=== PATIENT | female | born 1985 | race Caucasian/White ===

== ENCOUNTER 2018-01-09 20:22 | Emergency (ER) | payer OTHER ==
[~2018-01-09] VITALS: Ht 162.6 cm; Wt 99.8 kg
[~2018-01-09 20:22] MED LIST: ATOR10TA PO; COZ50 PO; FURO-570 PO; LABE100T20 PO; METO50TE2 PO; PHO667 PO; POTA10TE30 PO; VITA20002 PO
[2018-01-09 20:26] VITALS: BP 141/86
--- NOTE | 2018-01-09 20:31 | NUR ---
PT AMBULATED TO ROOM 12 WITH VSS.
--- NOTE | 2018-01-09 20:35 | NUR ---
PATIENT PRESENTS TO ED S/P FALL YESTERDAY. PATIENT STATES SHE SLIPPED ON A SMALL POOL OF WATER AND LANDED ON HER RIGHT KNEE. PATIENT PRESENTS WITH SUPERFICIAL 1 INCH X 1 INCH ABRASIAN. PATIENT STATES TAKING TYLENOL YESTERDAY FOR PAIN, BUT NO MEDICATION TODAY. APTIENT STATES SHE WAS REFERRED TO THE ER FROM HER DIALYSIS DR. PATIENT DENIES HITTING HER HEAD, LOSS OF CONSCIOUSNESS. PATIENT HAS STEADY GAIT, FULL ROM IN LE, CAP REFILL <3 AT THIS TIME. ER PA MADE AWEARE OF PATIENT STATUS. WILL CONTINUE TO MONITOR.
[2018-01-09 22:13] VITALS: BP 136/89
--- NOTE | 2018-01-09 22:15 | NUR ---
Patient discharged with v/s stable. Written and verbal after care instructions given and explained. Patient verbalized understanding. Ambulatory with steady gait. All questions addressed prior to discharge. Advised to follow up with PMD.
== END 2018-01-09 22:13 | disposition home or self-care (01) ==
LOC: MED 20:22
DX: M79.671 Pain in right foot (principal); M25.561 Pain in right knee; E11.9 Type 2 diabetes mellitus without complications; I10 Essential (primary) hypertension; Z99.2 Dependence on renal dialysis
CPT/HCPCS: 73562; 81002; 81025; 99284; Q0092

== ENCOUNTER 2018-05-19 14:15 | Emergency (ER) | payer OTHER ==
[~2018-05-19] VITALS: Ht 160 cm; Wt 103.0 kg
[2018-05-19 14:25] VITALS: BP 131/79
--- NOTE | 2018-05-19 14:30 | NUR ---
C/O LEFT KNEE INJURY MECHANICAL FALL TODAY, GETTING OFF A TRANSPORTATION VAN FELL ONTO LEFT KNEE, MILD SWELLING WITH SMALL HEMATOMA --AMBULATORY WITH STEADY GAIT HX--ESRD (LEFT ARM A/V SHUNT; GIOVANI, SARAY, SAT), HTN, DM RX--?? . DENIES N/V/D; SKIN IS PINK/WARM/DRY; AAOX4 WITH EVEN AND STEADY GAIT; LUNGS CLEAR BL; HR EVEN AND REGULAR; PT DENIES ANY FEVER, CP, SOB, OR COUGH AT THIS TIME; PATIENT STATES PAIN OF 6/10 AT THIS TIME; VSS; PATIENT POSITIONED FOR COMFORT; HOB ELEVATED; BEDRAILS UP X2; BED DOWN. ER MD MADE AWARE OF PT STATUS.
[2018-05-19] MEDS ORDERED: KETOROLAC 60 MG/2 ML VIAL IM ONE (15:10)
[2018-05-19 16:38] VITALS: BP 128/75
--- NOTE | 2018-05-19 16:38 | NUR ---
Patient discharged with v/s stable. Written and verbal after care instructions given and explained. Patient alert, oriented and verbalized understanding of instructions. Ambulatory with crutches to car. All questions addressed prior to discharge. ID band removed. Patient advised to follow up with PMD. Rx of tramadol given. Patient educated on indication of medication including possible reaction and side effects. Opportunity to ask questions provided and answered.
== END 2018-05-19 16:38 | disposition home or self-care (01) ==
LOC: MED 14:15
DX: S80.212A Abrasion, left knee, initial encounter (principal); K21.9 Gastro-esophageal reflux disease without esophagitis; Z79.899 Other long term (current) drug therapy; V58.4XXA Person boarding or alighting a pick-up truck or van injured in noncollision transport accident, initial encounter; Y93.89 Activity, other specified; Y92.89 Other specified places as the place of occurrence of the external cause; Y99.8 Other external cause status
CPT/HCPCS: 29505; 73562; 96372; 99283; J1885

== ENCOUNTER 2018-05-28 10:03 | Emergency (ER) | payer OTHER ==
[~2018-05-28] VITALS: Ht 162.6 cm; Wt 101.6 kg
--- NOTE | 2018-05-28 10:07 | NUR ---
PT AMBULATES TO BED 8
[2018-05-28 10:08] VITALS: BP 162/80
--- NOTE | 2018-05-28 10:15 | NUR ---
AAO PT C/O COUGH CONGESTION BILATERAL EAR PAIN N/V HEADACHE X 1 WK HX---ESRD( LEFT ARM A/V SHUNT), DM, HTN RX---METROPOLOL, LABETOLOL, LASIX, ATORVASTATIN, INSULIN
--- NOTE | 2018-05-28 10:31 | NUR ---
Patient being evaluated by physician at bedside.
[2018-05-28] MEDS ORDERED: ONDANSETRON 4 MG ODT PO ONE (10:50)
[2018-05-28] MEDS ORDERED: PROMETHAZINE 25 MG/ML VIAL IM ONE (10:50)
--- NOTE | 2018-05-28 12:34 | NUR ---
Patient discharged with v/s stable. Written and verbal after care instructions given and explained. Patient alert, oriented and verbalized understanding of instructions. Ambulatory with steady gait. All questions addressed prior to discharge. ID band removed. Patient advised to follow up with PMD. Rx of Imodium, Promethazine given. Patient educated on indication of medication including possible reaction and side effects. Opportunity to ask questions provided and answered.
[2018-05-28 12:35] VITALS: BP 162/80
== END 2018-05-28 12:34 | disposition home or self-care (01) ==
LOC: MED 10:03
DX: J06.9 Acute upper respiratory infection, unspecified (principal); H66.93 Otitis media, unspecified, bilateral; E11.9 Type 2 diabetes mellitus without complications; K21.9 Gastro-esophageal reflux disease without esophagitis; I10 Essential (primary) hypertension; Z88.0 Allergy status to penicillin; Z79.899 Other long term (current) drug therapy
CPT/HCPCS: 96372; 99283; J2550; Q0162

== ENCOUNTER 2018-08-19 17:17 | Emergency (ER) | payer OTHER ==
[~2018-08-19] VITALS: Ht 162.6 cm; Wt 101.6 kg
[2018-08-19 17:30] VITALS: BP 157/74
--- NOTE | 2018-08-19 17:30 | NUR ---
PT BIB FAMILY C/O L FOOT PAIN X1 DAY. PT REPORTS 9/10 SHARP/THROBING PAIN THROUGH ENTIRE FOOT. PT REPORTS WALKING AND HEARING A CRACK FOLLOWED BY SEVERE PAIN. L FOOT SWOLLEN, NO REDNESS, CAP REFIL <2 SEC, PEDAL PULSE PRESENT, RANGE OF MOTION DECREASED. VSS. ER MD TO SEE PT. MEDHX:DM, HTN, KIDNEY DISEASE, HEMODIALYSIS (TUES, THURS, SAT.) RX:PT UNABLE TO NAME MEDICATIONS
--- NOTE | 2018-08-19 18:20 | NUR ---
PT C/O SEVERE 10/10 NUMBING L FOOT PAIN. VSS. ER NOTIFIED.
[2018-08-19] MEDS ORDERED: KETOROLAC 60 MG/2 ML VIAL IM ONE (18:35)
--- NOTE | 2018-08-19 19:19 | NUR ---
BRADY BANDAGE APPLIED TO LEFT FOOT AND ANKLE; PHALANGES PINK AND WARM; PEDAL AND POPITEAL PULSES EQUAL, AND STRONG BL. PT STATES SHE US UNABLE TO MOVE HER TOES AND THEY "FEEL NUMB".
--- NOTE | 2018-08-19 19:27 | NUR ---
Patient discharged with v/s stable. Patient states she can only use one crutch becuase of fistula to left arm; steady gate with one crutch. Written and verbal after care instructions given and explained. Patient alert, oriented and verbalized understanding of instructions. All questions addressed prior to discharge. ID band removed. Patient advised to follow up with PMD. Rx of Naprosyn given. Patient educated on indication of medication including possible reaction and side effects. Opportunity to ask questions provided and answered.
[2018-08-19 19:30] VITALS: BP 145/63
== END 2018-08-19 19:27 | disposition home or self-care (01) ==
LOC: MED 17:17
DX: S93.402A Sprain of unspecified ligament of left ankle, initial encounter (principal); K21.9 Gastro-esophageal reflux disease without esophagitis; I12.9 Hypertensive chronic kidney disease with stage 1 through stage 4 chronic kidney disease, or unspecified chronic kidney disease; E11.22 Type 2 diabetes mellitus with diabetic chronic kidney disease; N18.6 End stage renal disease; Z79.899 Other long term (current) drug therapy; Z99.2 Dependence on renal dialysis; Z88.0 Allergy status to penicillin; X58.XXXA Exposure to other specified factors, initial encounter; Y93.01 Activity, walking, marching and hiking; Y92.89 Other specified places as the place of occurrence of the external cause; Y99.8 Other external cause status
CPT/HCPCS: 73610; 73630; 81025; 96372; 99283; J1885; Q0092

== ENCOUNTER 2018-11-08 21:54 | Emergency (ER) | payer OTHER ==
[~2018-11-08] VITALS: Ht 162.6 cm; Wt 104.3 kg
[2018-11-08 21:55] VITALS: BP 160/82
--- NOTE | 2018-11-08 21:58 | NUR ---
TO LOBBY A/W BED. VIA WHEELCHAIR
--- NOTE | 2018-11-08 22:34 | NUR ---
PT TO BED 4.
--- NOTE | 2018-11-08 22:41 | NUR ---
33/F PRESENTS WITH SON, C/O ELEVATED BP (HIGHEST 210/106 TODAY IN HD), X4 DAYS. PT REPORTS FRONTAL HEADACHE RADIATING TO POSTERIOR HEAD, SINCE YESTERDAY. REPORTS MILD NAUSEA. PT DENIES CP OR SOB. PT AOX4, SKIN NORMAL WARM AND DRY, RR EVEN AND UNLABORED. LUNG SOUNDS CLEAR BL. BS ACTIVE X4, ABD SOFT ROUND NONTENDER. L UPPER ARM FISTULA NOTED, +BRUIT, +THRILL. NO BLE EDEMA NOTED. PT WITH L BOOT DUE TO L TOE FX X3 MONTHS. HX HTN, DM, ESRD ON HD (TThS) RX COMPLIANT OTC TYLENOL WITH LITTLE RELIEF
[2018-11-08] MEDS ORDERED: MORPHINE SULFATE 4 MG/ML SYR IVP ONE (23:05)
[2018-11-08] MEDS ORDERED: hydrALAZINE 20 MG/ML VIAL IVP ONE (23:05)
[2018-11-09] MEDS ORDERED: PROCHLORPERAZINE 10 MG/2 ML VIAL IVP ONE
[2018-11-09 00:25] LABS: EOSINOPHILS # (AUTO) 0.2 K/uL (0-0.4); EOSINOPHILS % (AUTO) 3.8 % (0.0-4.0); HEMATOCRIT 38.1 % (36-48); HEMOGLOBIN 12.6 g/dL (12.0-16.0); LYMPHOCYTES # (AUTO) 1.1 K/uL (2.5-16.5); LYMPHOCYTES % (AUTO) 24.9 % (20.5-51.1); MEAN CORPUSCULAR HEMOGLOBIN 31 pg (27-31); MEAN CORPUSCULAR HGB CONC 33 g/dL (33-37); MEAN CORPUSCULAR VOLUME 93.8 fL (80-94); MONOCYTES # (AUTO) 0.4 K/uL (0.8-1.0); MONOCYTES % (AUTO) 9.6 % (1.7-9.3); NEUTROPHILS # (AUTO) 2.6 K/uL (1.8-7.7); NEUTROPHILS % (AUTO) 60.7 % (42.2-75.2); PLATELET COUNT (AUTO) 164 K/uL (140-450); RED BLOOD CELL COUNT(AUTO) 4.06 MIL/uL (4.20-5.40); RED CELL DISTRIBUTION WIDTH 16.2 % (11.6-13.7); WHITE BLOOD COUNT (AUTO) 4.2 K/uL (4.8-10.8)
[2018-11-09 00:38] LABS: ALBUMIN 2.9 g/dL (3.4-5.0); ANION GAP 10.4 (8-16); CARBON DIOXIDE 29.9 mmol/L (21-32); POTASSIUM 4.3 mmol/L (3.5-5.1); TOTAL BILIRUBIN 0.6 mg/dL (0.0-1.0)
[2018-11-09 00:41] LABS: CREATININE 5.1 mg/dL (0.6-1.3)
[2018-11-09] MEDS ORDERED: INSULIN REGULAR, HUMAN 100 UNIT/ML VIAL SUBQ ONE ×2 (00:45→01:35)
[2018-11-09] MEDS ORDERED: INSULIN REGULAR, HUMAN 100 UNIT/ML VIAL IV ONE (01:45)
--- NOTE | 2018-11-09 02:05 | NUR ---
PT REPORTS IMPROVEMENT IN HEADACHE, 5/10 AT THIS TIME. BLOOD GLUCOSE 419. VSS. BP 136/70, HR 78. DR BARAJAS MADE AWARE.
--- NOTE | 2018-11-09 02:05 | NUR ---
VERBAL ORDER TO SWITCH HUMULIN R 6 UNITS SUBCUTANEOUS TO IVP FROM DR BARAJAS
[2018-11-09 02:17] VITALS: BP 136/70
== END 2018-11-09 02:17 | disposition home or self-care (01) ==
LOC: MED 21:54
DX: R51 Headache (principal); E11.22 Type 2 diabetes mellitus with diabetic chronic kidney disease; I12.0 Hypertensive chronic kidney disease with stage 5 chronic kidney disease or end stage renal disease; N18.6 End stage renal disease; E11.65 Type 2 diabetes mellitus with hyperglycemia; K21.9 Gastro-esophageal reflux disease without esophagitis; Z99.2 Dependence on renal dialysis; Z79.899 Other long term (current) drug therapy; Z88.0 Allergy status to penicillin
CPT/HCPCS: 36415; 80053; 82948; 85025; 96372; 96374; 96375; 99283; J0360; J0780; J1815; J2270

== ENCOUNTER 2018-11-12 06:20 | Observation (INO) | payer OTHER ==
[~2018-11-12] VITALS: Ht 162.6 cm; Wt 107.0 kg
[2018-11-12 06:27] VITALS: BP 143/68
--- NOTE | 2018-11-12 06:27 | NUR ---
PT TAKEN TO BED 8
--- NOTE | 2018-11-12 06:27 | NUR ---
33 Y/O FEMALE PRESENTS TO ER WITH C/O MOREIRA, COUGH, N/V, AND SOB X3 DAYS. BILAT LOBES DIMINISHED THROUGHT. 77% @RA. NON-PRODUCTIVE COUGH. 10/10 MOREIRA PAIN. N/V X1, ONE HOUR BEFORE ARRIVING TO ER. HX: DIALYSIS AND DM. BLOOD GLUCOSE 346.
--- NOTE | 2018-11-12 06:28 | NUR ---
PLACED ON SUPPLEMENTAL O2 WITH NC @ 2LPM. OXYGEN INCREASED TO 83%.
--- NOTE | 2018-11-12 06:30 | NUR ---
INCREASED OXYGEN TO 4% VIA NC. O2 INCREASED TO 90%. PT STATES RELIEFE. NO RESPIRATORY DISTRESS NOTED. ER MD NOTIFIED. CONTINUE TO MONITOR.
[2018-11-12] MEDS ORDERED: ALBUTEROL SULFATE/IPRATROPIU 3 ML SOL IH ONE (06:50)
--- NOTE | 2018-11-12 06:59 | NUR ---
Respiratory Therapist at bedside for respiratory intervention.
--- NOTE | 2018-11-12 07:05 | NUR ---
ADMITTING DX: COUGH HX: DENIES ASTHMA COPF CHF AWAKE AND ALERT VERBALLY RESPONSIVE HHN THERAPY AND RESPIRATORY DRUG GIVEN NOTED ENCOURAGED PATIENT WITH ACKNOWLEDGEMENT FOR DEEP BREATHING DURING THERAPY
--- NOTE | 2018-11-12 07:13 | NUR ---
Dr. Damon examining patient.
--- NOTE | 2018-11-12 07:15 | NUR ---
POST HHN THERAPY PLACED BACL ON SUPPLEMENTAL OXYGEN AT 4 LPM VIA NC
--- NOTE | 2018-11-12 07:20 | NUR ---
REPORT RECEIVED FROM JUDE NGUYỄN.
[2018-11-12 07:25] LABS: BASOPHILS % (AUTO) 0.3 % (0.0-2.0); EOSINOPHILS # (AUTO) 0.2 K/uL (0-0.4); EOSINOPHILS % (AUTO) 1.5 % (0.0-4.0); HEMATOCRIT 40.3 % (36-48); HEMOGLOBIN 13.6 g/dL (12.0-16.0); LYMPHOCYTES # (AUTO) 0.7 K/uL (2.5-16.5); MEAN CORPUSCULAR HEMOGLOBIN 31 pg (27-31); MEAN CORPUSCULAR HGB CONC 34 g/dL (33-37); MEAN CORPUSCULAR VOLUME 93.1 fL (80-94); MONOCYTES # (AUTO) 0.4 K/uL (0.8-1.0); MONOCYTES % (AUTO) 3.6 % (1.7-9.3); NEUTROPHILS # (AUTO) 9.2 K/uL (1.8-7.7); NEUTROPHILS % (AUTO) 87.6 % (42.2-75.2); PLATELET COUNT (AUTO) 206 K/uL (140-450); RED BLOOD CELL COUNT(AUTO) 4.33 MIL/uL (4.20-5.40); RED CELL DISTRIBUTION WIDTH 15.9 % (11.6-13.7)
[2018-11-12 07:40] LABS: WHITE BLOOD COUNT (AUTO) 10.5 K/uL (4.8-10.8)
[2018-11-12 07:45] LABS: PROTHROMBIN TIME 10.3 secs (10.8-13.4)
[2018-11-12] MEDS ORDERED: LEVOFLOXACIN 500 MG/D5W PREMIX 100 ML IV ONE (07:45)
[2018-11-12 07:46] LABS: ALBUMIN 3.7 g/dL (3.4-5.0); ANION GAP 17.6 (8-16); CARBON DIOXIDE 23.5 mmol/L (21-32); POTASSIUM 4.1 mmol/L (3.5-5.1)
[2018-11-12] MEDS ORDERED: KETOROLAC 15 MG/ML VIAL IVP ONE (07:55)
--- NOTE | 2018-11-12 08:10 | NUR ---
INFLUENZA A & B SAMPLE COLLECTED.
[2018-11-12 08:13] LABS: CREATININE 6.7 mg/dL (0.6-1.3)
[2018-11-12] MEDS ORDERED: INSULIN REGULAR, HUMAN 100 UNIT/ML VIAL SUBQ ONE (08:20)
--- NOTE | 2018-11-12 08:29 | NUR ---
BLOOD GLUCOSE 333 MG/DL. MADE AWARE.
[2018-11-12] MEDS ORDERED: LORazepam 2 MG/ML VIAL IVP PRN (08:30)
[2018-11-12] MEDS ORDERED: ALBUTEROL 0.083% 2.5 MG/3 ML NEBU IH PRN (08:30)
[2018-11-12 09:12] VITALS: BP 162/81
--- NOTE | 2018-11-12 09:12 | NUR ---
Patient will be admitted to care of DR. LARSEN. Admited to TELEMETRY. Will go to room 113. Belongings list completed. Report to JUDE ROBBINS.
--- NOTE | 2018-11-12 09:12 | NUR ---
RECEIVED BEDSIDE REPORT FROM JUDE MORRISON. PATIENT FROM ER, ON TELE MONITOR AND STANDARD PRECAUTIONS IN PLACE. PATIENT ON 6 L O2 NC, NO DISTRESS NOTED. PATIENT AAOX4 AND COMMUNICATES APPROPRIATELY, L SECOND TOE FRACTURE WITH WHEELCHAIR AT BEDSIDE. IV ON L AC 22G SALINE LOCK, IV PATENT AND INTACT. FALL RISK PROTOCOL IN PLACE. L AV SHUNT PRESENT, SIGN POSTED AT [facility] FOR NO BP/VENIPUNCTURE ON L ARM. BED IN LOW POSITION, CALL LIGHT WITHIN REACH, SIDE RAILS X2 UP
[2018-11-12] MEDS: LOSARTAN 50 MG TAB PO SCH (10:06)
--- NOTE | 2018-11-12 10:09 | NUR ---
ADMINISTERED SCHEDULED MEDS. PATIENT TOLERATED WELL
--- NOTE | 2018-11-12 11:59 | NUR ---
SPOKE TO AUGIE, COVERING FOR [facility] DIALYSIS NURSE, REGARDING HEMODIALYSIS SCHEDULED FOR TOMORROW
[2018-11-12 12:00] VITALS: BP 165/80
[2018-11-12] MEDS: MORPHINE SULFATE 4 MG/ML SYR IVP PRN ×2 (12:06→18:32)
[2018-11-12] MEDS: CALCIUM ACETATE 667 MG TAB PO SCH ×2 (12:11→18:00)
[2018-11-12] MEDS: ONDANSETRON 4 MG/2 ML VIAL IVP PRN (12:20)
--- NOTE | 2018-11-12 12:28 | NUR ---
ADMINISTERED SCHEDULED MED AND MORPHINE FOR 8/10 BACK PAIN AND ZOFRAN FOR NAUSEA. PATIENT TOLERATED WELL.
[2018-11-12] MEDS ORDERED: ALBUTEROL 0.083% 2.5 MG/3 ML NEBU IH SCH (13:00)
[2018-11-12] MEDS: ACETAMINOPHEN 325 MG TAB PO PRN ×2 (13:54→18:31)
--- NOTE | 2018-11-12 14:04 | NUR ---
ATTEMPTED TO TAKE PHOTO OF L SECOND TOE FRACTURE, BUT PATIENT STATED HER FOOT DOCTOR DOES NOT WANT IT TO BE REMOVED BY ANYONE ELSE UNTIL FOOT DOCTOR SEES HER AGAIN
[2018-11-12 16:00] VITALS: BP 155/81
--- NOTE | 2018-11-12 18:01 | NUR ---
ADMINISTERED SCHEDULED MED AND ZOFRAN PRN NAUSEA. PATIENT SITTING UP IN BED, TOLERATED WELL
--- NOTE | 2018-11-12 18:02 | NUR ---
FAMILY BROUGHT WHEELCHAIR HOME
[2018-11-12] MEDS ORDERED: SINE10 PO (18:12)
[2018-11-12] MEDS ORDERED: AMLO10TA PO (18:12)
[2018-11-12] MEDS ORDERED: SEVE800T6 PO (18:12)
[2018-11-12] MEDS ORDERED: GABA100C PO (18:12)
--- NOTE | 2018-11-12 18:37 | NUR ---
RETURNED HOME MEDS TO PATIENT. PATIENT STATED [id number] WILL COME VISIT [facility] AND TAKE MEDS HOME
--- NOTE | 2018-11-12 19:10 | NUR ---
GAVE BEDSIDE REPORT TO JUDE FELICIANO. PATIENT ENDORSED IN STABLE CONDITION
--- NOTE | 2018-11-12 19:12 | NUR ---
Received endorsement from AM shift RN; patient A/Ox4, able to make needs known, on bedrest. Patient watching TV; introduced self, updated board. No SOB or distress noted, on O2 6LPM via nasal cannula. IV site on right antecubital, 22 gauge, saline locked. Left upper extremity AVF noted for dialysis access. Skin intact. Boot on left leg noted; boot must remain on per primary healthcare provider order due to second toe fracture that occurred 3 months ago. Bed in the lowest position, call light within reach. Initial assessment done. Will continue to monitor.
--- NOTE | 2018-11-12 19:45 | NUR ---
Frank from Dialysis arrived in patient room to administer dialysis.
[2018-11-12 20:00] VITALS: BP 168/87
--- NOTE | 2018-11-12 20:00 | NUR ---
Dialysis started at this time.
--- NOTE | 2018-11-12 22:05 | NUR ---
Rounds done; Dialysis nurse Frank at bedside. No distress noted.
--- NOTE | 2018-11-12 23:15 | NUR ---
Dialysis Nurse Frank noted dialysis was completed at 2300 and stated 3 liters of fluid removed during dialysis.
[2018-11-13] VITALS: BP 155/81
--- NOTE | 2018-11-13 00:20 | NUR ---
Vitals taken, no distress noted.
--- NOTE | 2018-11-13 02:30 | NUR ---
Checks made, no distress noted.
[2018-11-13 04:00] VITALS: BP 146/70
--- NOTE | 2018-11-13 04:10 | NUR ---
Frequent checks made; patient asleep, visible chest rise and fall noted. Addendum: 11/13/18 at 0610 by Sj Valdes RN Vitals taken at this time, no distress noted.
--- NOTE | 2018-11-13 05:20 | NUR ---
Rounds made; patient asleep, visible chest rise and fall noted.
--- NOTE | 2018-11-13 07:10 | NUR ---
Endorsed patient to AM shift RN for continuity of care; patient in stable condition.
--- NOTE | 2018-11-13 07:11 | NUR ---
RECEIVED BEDSIDE REPORT FROM JUDE FELICIANO. PATIENT ON TELE MONITOR AND STANDARD PRECAUTIONS IN PLACE. PATIENT AAOX4 AND COMMUNICATES APPROPRIATELY, ON 2 L O2 NC, NO DISTRESS NOTED, AND SKIN INTACT EXCEPT FOR L SECOND TOE FRACTURE WITH STITCHES AND BOOT ON L LEG. PATIENT UNABLE TO BEAR WEIGHT AND USES WHEELCHAIR. L AV SHUNT PRESENT, SIGN POSTED AT [facility] FOR NO BP/VENIPUNCTURE ON L ARM. IV ON R AC 22G SALINE LOCK, IV PATENT AND INTACT. FALL RISK PROTOCOL IN PLACE. BED IN LOW POSITION, CALL LIGHT WITHIN REACH, SIDE RAILS X2 UP
[2018-11-13 07:20] LABS: BASOPHILS % (AUTO) 0.2 % (0.0-2.0); EOSINOPHILS # (AUTO) 0.2 K/uL (0-0.4); EOSINOPHILS % (AUTO) 1.6 % (0.0-4.0); HEMATOCRIT 34.6 % (36-48); HEMOGLOBIN 11.6 g/dL (12.0-16.0); LYMPHOCYTES # (AUTO) 0.8 K/uL (2.5-16.5); LYMPHOCYTES % (AUTO) 8.4 % (20.5-51.1); MEAN CORPUSCULAR HEMOGLOBIN 32 pg (27-31); MEAN CORPUSCULAR HGB CONC 34 g/dL (33-37); MEAN CORPUSCULAR VOLUME 94.1 fL (80-94); MONOCYTES # (AUTO) 0.4 K/uL (0.8-1.0); MONOCYTES % (AUTO) 4.3 % (1.7-9.3); NEUTROPHILS # (AUTO) 8.6 K/uL (1.8-7.7); NEUTROPHILS % (AUTO) 85.5 % (42.2-75.2); PLATELET COUNT (AUTO) 166 K/uL (140-450); RED BLOOD CELL COUNT(AUTO) 3.68 MIL/uL (4.20-5.40)
[2018-11-13 07:43] LABS: ALBUMIN 2.5 g/dL (3.4-5.0); ANION GAP 13.3 (8-16); CARBON DIOXIDE 28.2 mmol/L (21-32); MAGNESIUM 1.8 mg/dL (1.8-2.4); PHOSPHORUS 4.1 mg/dL (2.5-4.9); POTASSIUM 4.5 mmol/L (3.5-5.1); TOTAL BILIRUBIN 1.1 mg/dL (0.0-1.0)
[2018-11-13 07:45] LABS: CREATININE 5.1 mg/dL (0.6-1.3)
[2018-11-13] MEDS: ACETAMINOPHEN 325 MG TAB PO PRN ×2 (07:58→14:36)
[2018-11-13] MEDS: CALCIUM ACETATE 667 MG TAB PO SCH ×2 (08:00→12:02)
[2018-11-13] MEDS: LOSARTAN 50 MG TAB PO SCH (08:01)
--- NOTE | 2018-11-13 08:01 | NUR ---
ADMINISTERED TYLENOL PRN FOR HEADACHE, HELD PHOSLO SINCE PATIENT HAS TO TAKE IT WITH FOOD AND SHE STATED SHE DOES NOT WANT TO EAT DURING DIALYSIS AND HELD LOSARTAN SINCE SHE IS CURRENTLY HAVING DIALYSIS AT THIS TIME
--- NOTE | 2018-11-13 08:17 | NUR ---
PATIENT HAS BEEN SCREENED AND CATEGORIZED HIGH NUTRITION RISK. PATIENT WILL BE SEEN WITHIN 1-2 DAYS OF ADMISSION. 11/13/[address]
[2018-11-13 08:53] VITALS: BP 164/83
--- NOTE | 2018-11-13 10:15 | NUR ---
PATIENT HAVING DIALYSIS AT THIS TIME, ON 2L O2 NC, NO DISTRESS NOTED
--- NOTE | 2018-11-13 11:18 | NUR ---
HEMODIALYSIS COMPLETE, 3L OUTPUT. PATIENT NOW EATING
[2018-11-13 12:00] VITALS: BP 152/72
--- NOTE | 2018-11-13 12:02 | NUR ---
FAMILY AT BEDSIDE, PATIENT LYING IN BED COMFORTABLY SPEAKING TO FAMILY, ON ROOM AIR, NO DISTRESS NOTED
--- NOTE | 2018-11-13 12:10 | NUR ---
DR. LARSEN AT BEDSIDE, STATED PATIENT CAN BE DISCHARGED TODAY
[2018-11-13] MEDS: ONDANSETRON 4 MG/2 ML VIAL IVP PRN (14:36)
--- NOTE | 2018-11-13 14:45 | NUR ---
DISCHARGE INSTRUCTIONS PROVIDED TO PATIENT. PNA VACCINE 2017 AND FLU VACCINE 04/2018. PATIENT INSTRUCTED TO RESUME HEMODIALYSIS ON MONDAY AND TO RETURN TO NEAREST ER OR CALL 911 IF SHE EXPERIENCES SOB, FEVER, PAIN, OR WORSENING OF SYMPTOMS. L SECOND TOE FRACTURE STITCHES IN PLACE PER PATIENT WITH BOOT ON L LEG, UNABLE TO TAKE PICTURES SINCE PATIENT STATED HER FOOT DOCTOR ORDERED FOR HER NOT TO REMOVE IT UNTIL SHE SEES FOOT DOCTOR AGAIN. DR. LARSEN ORDERED FOR HER TO RESUME ALL HER HOME MEDS AND TO STOP ANTIBIOTICS. PATIENT VERBALIZED UNDERSTANDING. REMOVED ARM BANDS AND IV, IV TIP INTACT. ALL BELONGINGS SENT HOME WITH PATIENT. ANSWERED ALL QUESTIONS AND CONCERNS.
[2018-11-14] MEDS ORDERED: LEVOFLOXACIN 250 MG/D5 PREMIX 50 ML IV SCH (09:00)
== END 2018-11-13 14:55 | disposition home or self-care (01) ==
LOC: MED 06:20 → MTU 08:50
PROVIDERS: ADMIT Internal Medicine Pulmonary Disease; ATTEND Internal Medicine Pulmonary Disease
DX: R65.20 Severe sepsis without septic shock (principal); I12.0 Hypertensive chronic kidney disease with stage 5 chronic kidney disease or end stage renal disease; E11.22 Type 2 diabetes mellitus with diabetic chronic kidney disease; N18.6 End stage renal disease; J18.9 Pneumonia, unspecified organism; E87.79 Other fluid overload; E66.01 Morbid (severe) obesity due to excess calories; J81.1 Chronic pulmonary edema; Z88.0 Allergy status to penicillin; Z99.2 Dependence on renal dialysis
CPT/HCPCS: 36415; 71045; 80053; 82948; 83605; 83735; 83880; 84100; 84484; 85025; 85610; 85730; 87040; 87081; 87804; 93307; 94640; 94760; 96365; 96372; 96375; 96376; 99291; G0378; J1815; J1885; J1956; J2270; J2405; J7030; J7613; J7620; Q0092; 90935

== ENCOUNTER 2019-01-17 14:42 | Emergency (ER) | payer OTHER ==
[~2019-01-17] VITALS: Ht 162.6 cm; Wt 101.8 kg
[~2019-01-17 14:42] MED LIST changes: +AMLO10TA PO; +GABA100C PO; +SEVE800T6 PO; +SINE10 PO
[2019-01-17 14:50] VITALS: BP 160/81
--- NOTE | 2019-01-17 15:03 | NUR ---
PT AMBULATED TO [facility] WITH STEADY GAIT
--- NOTE | 2019-01-17 16:40 | NUR ---
PT AMBULATED TO BED 12 WITH STEADY GAIT. HANDED URINE CUP.
--- NOTE | 2019-01-17 16:40 | NUR ---
PT AMBULATED TO THE BATHROOM WITH STEADY GAIT.
--- NOTE | 2019-01-17 16:48 | NUR ---
BIB SELF. AAO X4 C/O HEADACHE R/T HIGH BLOOD PRESSURE. PT STATES SHE TOOK HER BP MEDS AFTER HER DIALYSIS TODAY AT 0930, LOSARTAN & LABETALOL. PT DENIES DIZZINESS, N/V. WILFREDO FISTULA. PATIENT STATES PAIN OF 10/10 AT THIS TIME; VSS; PATIENT POSITIONED FOR COMFORT; HOB ELEVATED; BEDRAILS UP X1; BED DOWN. ER MD MADE AWARE OF PT STATUS.
--- NOTE | 2019-01-17 17:00 | NUR ---
DR. SANCHES BEDSIDE EVALUATING PT
[2019-01-17] MEDS ORDERED: diphenhydrAMINE 50 MG/ML VIAL IVP ONE (17:15)
[2019-01-17] MEDS ORDERED: METOCLOPRAMIDE 10 MG/2 ML INJ VIAL IVP ONE (17:15)
--- NOTE | 2019-01-17 17:28 | NUR ---
PT TAKEN TO CT VIA W/C
--- NOTE | 2019-01-17 17:37 | NUR ---
PT IS BACK FROM CT SCAN ASSISTED BY DIRECTOR OF PAYROLL VIA WHEELCHAIR.
[2019-01-17 17:57] LABS: BASOPHILS % (AUTO) 0.3 % (0.0-2.0); EOSINOPHILS # (AUTO) 0.1 K/uL (0-0.4); EOSINOPHILS % (AUTO) 1.3 % (0.0-4.0); HEMATOCRIT 39.6 % (36-48); HEMOGLOBIN 13.2 g/dL (12.0-16.0); LYMPHOCYTES # (AUTO) 0.4 K/uL (2.5-16.5); LYMPHOCYTES % (AUTO) 8.8 % (20.5-51.1); MEAN CORPUSCULAR HEMOGLOBIN 31 pg (27-31); MEAN CORPUSCULAR HGB CONC 33 g/dL (33-37); MEAN CORPUSCULAR VOLUME 92.2 fL (80-94); MONOCYTES # (AUTO) 0.5 K/uL (0.8-1.0); MONOCYTES % (AUTO) 11.2 % (1.7-9.3); NEUTROPHILS # (AUTO) 3.1 K/uL (1.8-7.7); NEUTROPHILS % (AUTO) 78.4 % (42.2-75.2); PLATELET COUNT (AUTO) 157 K/uL (140-450); RED BLOOD CELL COUNT(AUTO) 4.29 MIL/uL (4.20-5.40); RED CELL DISTRIBUTION WIDTH 15.2 % (11.6-13.7)
[2019-01-17 18:13] LABS: ANION GAP 13.2 (8-16); CARBON DIOXIDE 27.9 mmol/L (21-32); POTASSIUM 4.1 mmol/L (3.5-5.1)
--- NOTE | 2019-01-17 18:17 | NUR ---
CRITICAL LAB REPORT RECEIVED FROM MERCED FROM LAB. CREATININE: 5.4 DR SANCHES AWARE.
[2019-01-17 18:18] LABS: CREATININE 5.4 mg/dL (0.6-1.3)
[2019-01-17 18:19] LABS: ALBUMIN 3.1 g/dL (3.4-5.0); TOTAL BILIRUBIN 0.7 mg/dL (0.0-1.0)
--- NOTE | 2019-01-17 18:50 | NUR ---
Dr. Brown is evaluating pt at bedside.
[2019-01-17] MEDS ORDERED: HYDROcodone/APAP 5/325 MG 1 TAB TAB PO ONE (18:55)
[2019-01-17 19:10] VITALS: BP 140/67
--- NOTE | 2019-01-17 19:10 | NUR ---
Patient discharged with v/s stable. Written and verbal after care instructions given and explained. Patient alert, oriented and verbalized understanding of instructions. Ambulatory with steady gait. All questions addressed prior to discharge. ID band removed. Patient advised to follow up with PMD. Rx of ZOFRAN ODT AND NORCO 5-325 MG TAB given. Patient educated on indication of medication including possible reaction and side effects. Opportunity to ask questions provided and answered.
== END 2019-01-17 19:10 | disposition home or self-care (01) ==
LOC: MED 14:42
DX: R51 Headache (principal); R03.0 Elevated blood-pressure reading, without diagnosis of hypertension; R11.0 Nausea; E11.9 Type 2 diabetes mellitus without complications; K21.9 Gastro-esophageal reflux disease without esophagitis; I10 Essential (primary) hypertension; E78.5 Hyperlipidemia, unspecified; Z98.890 Other specified postprocedural states; Z79.899 Other long term (current) drug therapy; Z88.0 Allergy status to penicillin
CPT/HCPCS: 36415; 70450; 80053; 82948; 85025; 96374; 96375; 99284; J1200; J2765

== ENCOUNTER 2019-03-27 15:45 | Emergency (ER) | payer OTHER ==
[~2019-03-27] VITALS: Ht 160 cm; Wt 99.8 kg
[~2019-03-27 15:45] MED LIST changes: -COZ50 PO; +LOSA50TA57 PO
[2019-03-27 16:00] VITALS: BP 147/89
--- NOTE | 2019-03-27 16:01 | NUR ---
PT ARRVIED TO ED C/O RIGHT ABD PAIN AND RIGHT FLANK PAIN X YESTERDAY. DENIES ANY DYSURIA AND BLOOD IN URINE. ABD IS ROUND AND SOFT AND TENDER ON RIGHT LOWER QUAD. RATES PAIN 9/10 AND DESCRIBES IT SHARP. STATES HE HAD TO EPISODES OF VOMITTING TODAY. ALLERGIES: PENICILLIN
--- NOTE | 2019-03-27 16:05 | NUR ---
PT TO ER LESVIABY. PT ALERT AND AWAKE. AMB WITH STEADY GAIT
--- NOTE | 2019-03-27 16:17 | NUR ---
PT AMBULATED TO BED 04.
[2019-03-27] MEDS ORDERED: NACL 0.9% 1,000 ML IV ONE (16:55)
[2019-03-27] MEDS ORDERED: ONDANSETRON 4 MG/2 ML VIAL IVP ONE (16:55)
--- NOTE | 2019-03-27 17:20 | NUR ---
PT HAS RIGHT SHUNT FOR DIALYSIS ACCESS ON RIGHT ARM.
[2019-03-27] MEDS ORDERED: KETOROLAC 30 MG/ML VIAL IVP ONE (17:25)
[2019-03-27 17:43] LABS: APPEARANCE,URINE CLEAR (CLEAR); BILIRUBIN,URINE NEGATIVE (NEGATIVE); BLOOD, URINE TRACE-I (NEGATIVE); COLOR,URINE YELLOW (YELLOW); LEUKOCYTE ESTERASE ,URINE NEGATIVE (NEGATIVE); NITRITE, URINE NEGATIVE (NEGATIVE); PH,URINE 8.5 (5.0-9.0); UGLUCOSE 1+ (NEGATIVE)
[2019-03-27 17:47] LABS: BASOPHILS # (AUTO) 0.1 K/uL (0.00-0.22); BASOPHILS % (AUTO) 1.2 % (0.0-2.0); EOSINOPHILS # (AUTO) 0.1 K/uL (0-0.4); EOSINOPHILS % (AUTO) 2.6 % (0.0-4.0); HEMATOCRIT 35.2 % (36-48); HEMOGLOBIN 11.4 g/dL (12.0-16.0); LYMPHOCYTES % (AUTO) 22.4 % (20.5-51.1); MEAN CORPUSCULAR HEMOGLOBIN 31 pg (27-31); MEAN CORPUSCULAR HGB CONC 33 g/dL (33-37); MEAN CORPUSCULAR VOLUME 94.8 fL (80-94); MONOCYTES # (AUTO) 0.5 K/uL (0.8-1.0); MONOCYTES % (AUTO) 10.7 % (1.7-9.3); NEUTROPHILS # (AUTO) 2.9 K/uL (1.8-7.7); NEUTROPHILS % (AUTO) 63.1 % (42.2-75.2); PLATELET COUNT (AUTO) 164 K/uL (140-450); RED BLOOD CELL COUNT(AUTO) 3.71 MIL/uL (4.20-5.40); RED CELL DISTRIBUTION WIDTH 14.8 % (11.6-13.7); WHITE BLOOD COUNT (AUTO) 4.7 K/uL (4.8-10.8)
--- NOTE | 2019-03-27 17:47 | NUR ---
BS 61, NOTIFIED ABOUT IT.
[2019-03-27 18:07] LABS: ANION GAP 14.7 (8-16); CARBON DIOXIDE 29.1 mmol/L (21-32); POTASSIUM 4.8 mmol/L (3.5-5.1)
[2019-03-27 18:09] LABS: ALBUMIN 3.6 g/dL (3.4-5.0); CREATININE 6.3 mg/dL (0.6-1.3); TOTAL BILIRUBIN 0.7 mg/dL (0.0-1.0)
[2019-03-27 18:46] VITALS: BP 147/89
== END 2019-03-27 18:47 | disposition home or self-care (01) ==
LOC: MED 15:45
DX: R10.9 Unspecified abdominal pain (principal); R11.2 Nausea with vomiting, unspecified; E11.9 Type 2 diabetes mellitus without complications; K21.9 Gastro-esophageal reflux disease without esophagitis; I10 Essential (primary) hypertension; F03.90 Unspecified dementia, unspecified severity, without behavioral disturbance, psychotic disturbance, mood disturbance, and anxiety; Z87.448 Personal history of other diseases of urinary system; Z98.890 Other specified postprocedural states; Z79.899 Other long term (current) drug therapy; Z88.0 Allergy status to penicillin
CPT/HCPCS: 36415; 80053; 81003; 81025; 82150; 82948; 83690; 85025; 96361; 96374; 96375; 99283; J1885; J2405; J7030

== ENCOUNTER 2019-03-29 17:59 | Emergency (ER) | payer OTHER ==
[~2019-03-29] VITALS: Ht 160 cm; Wt 100.2 kg
[2019-03-29 18:22] VITALS: BP 174/85
--- NOTE | 2019-03-29 18:28 | NUR ---
ACCU CHECK 204
--- NOTE | 2019-03-29 18:28 | NUR ---
PT TO ER LOBBY. PT ALERT AND AWAKE
--- NOTE | 2019-03-29 20:38 | NUR ---
PT AMBULATED TO ER BED 11
--- NOTE | 2019-03-29 21:00 | NUR ---
34 Y/O FEMALE ABD BACK PAIN WITH VOMITING X MONDAY. SAW PCP TODAY AND WAS SENT TO ER FOR ABDOMINAL AND RENAL US. A/OX4 AND FOLLOWS COMMANDS. PAIN IS A 10/10 PAIN STARTING FROM LOWER ABDOMEN AND RADIATING TO THE BACK. ERMD MADE AWARE. SIDE RAILSX1. WILL CONTINUE TO MONITOR. PMH- L ARM FISTULA, DM, KIDNEY DISEASE, HTN ALLERGIES:PCN RX: SEE MED REC.
[2019-03-29] MEDS ORDERED: MORPHINE SULFATE 2 MG/ML SYR IVP ONE (21:15)
[2019-03-29] MEDS ORDERED: ONDANSETRON 4 MG/2 ML VIAL IVP ONE (21:15)
--- NOTE | 2019-03-29 21:33 | NUR ---
PATIENT TAKEN TO CT.
[2019-03-29 21:43] LABS: BASOPHILS % (AUTO) 0.9 % (0.0-2.0); EOSINOPHILS # (AUTO) 0.1 K/uL (0-0.4); EOSINOPHILS % (AUTO) 2.3 % (0.0-4.0); HEMATOCRIT 34.5 % (36-48); HEMOGLOBIN 11.4 g/dL (12.0-16.0); LYMPHOCYTES # (AUTO) 1.3 K/uL (2.5-16.5); LYMPHOCYTES % (AUTO) 27.1 % (20.5-51.1); MEAN CORPUSCULAR HEMOGLOBIN 31 pg (27-31); MEAN CORPUSCULAR HGB CONC 33 g/dL (33-37); MEAN CORPUSCULAR VOLUME 94.6 fL (80-94); MONOCYTES # (AUTO) 0.5 K/uL (0.8-1.0); MONOCYTES % (AUTO) 11.2 % (1.7-9.3); NEUTROPHILS # (AUTO) 2.8 K/uL (1.8-7.7); NEUTROPHILS % (AUTO) 58.5 % (42.2-75.2); PLATELET COUNT (AUTO) 183 K/uL (140-450); RED BLOOD CELL COUNT(AUTO) 3.64 MIL/uL (4.20-5.40); WHITE BLOOD COUNT (AUTO) 4.8 K/uL (4.8-10.8)
[2019-03-29 22:31] LABS: ANION GAP 13.7 (8-16); CARBON DIOXIDE 29.4 mmol/L (21-32); POTASSIUM 5.1 mmol/L (3.5-5.1)
[2019-03-29 22:32] LABS: ALBUMIN 3.5 g/dL (3.4-5.0); TOTAL BILIRUBIN 0.8 mg/dL (0.0-1.0)
[2019-03-29 22:41] LABS: CREATININE 6.8 mg/dL (0.6-1.3)
[2019-03-29] MEDS ORDERED: MORPHINE SULFATE 4 MG/ML SYR IVP ONE (23:00)
--- NOTE | 2019-03-29 23:15 | NUR ---
PATIENT IS IN NO DISTRESS AT THIS TIME. PLACED ON MONITOR. WILL CONTINUE TO MONITOR.
--- NOTE | 2019-03-30 00:13 | NUR ---
PATIENT IS QUIETLY EATING. WILL CONTINUE TO MONITOR.
[2019-03-30 01:58] VITALS: BP 137/80
--- NOTE | 2019-03-30 01:58 | NUR ---
Patient discharged with v/s stable. Written and verbal after care instructions given and explained. Patient alert, oriented and verbalized understanding of instructions. Ambulatory with steady gait. All questions addressed prior to discharge. ID band removed. Patient advised to follow up with PMD. Opportunity to ask questions provided and answered.
== END 2019-03-30 01:58 | disposition home or self-care (01) ==
LOC: MED 17:59
DX: R10.9 Unspecified abdominal pain (principal)
CPT/HCPCS: 36415; 74176; 80053; 81002; 81025; 82150; 82948; 83690; 85025; 96374; 96375; 96376; 99284; J2270; J2405

== ENCOUNTER 2019-04-01 16:01 | Emergency (ER) | payer OTHER ==
[~2019-04-01] VITALS: Ht 162.6 cm; Wt 98.9 kg
[2019-04-01 16:16] VITALS: BP 159/84
--- NOTE | 2019-04-01 16:45 | NUR ---
34/F BIB MOTHER, COMPLAINING OF ABDOMINAL AND RIGHT FLANK PAIN. pt states she has not had a bm since 03/26/19, NOT PASSING GAS, QSX4 HYPERACTIVE, ABDOMEN IS TENDER TO TOUCH ON RLQ, +VOMITING, +NAUSEA [id number]. PAIN /, ALLEVIATES BY LAYING ON LEFT SIDE. PATIENT HAS DIALTYSIS ON MONDAY, MONDAY AND . SHUNT IS INTACT, BRUIT AND THRILL PRESENT. PMHX: DIABETES, KIDNEY FAILURE, HTN RX: AMLODIPINE, CHOLECALCIFEROL, ETHINYL ESTRADIOL-NORETHINDRONE, FUROSEMIDE, GABAPENTIN, GLYBURIDE, HYDROXYNE, INSULIN ASPART, INSULIN DEGLUDEC, LABETADOL, LOSARTAN, METOCLOPRAMIDE, METOPROLOL, POTASSIUM CHLORIDE, SEVELAMER
[2019-04-01] MEDS ORDERED: ONDANSETRON 4 MG ODT PO ONE (17:10)
[2019-04-01] MEDS ORDERED: MORPHINE SULFATE 4 MG/ML SYR IM ONE (17:10)
[2019-04-01 17:30] LABS: BASOPHILS # (AUTO) 0.1 K/uL (0.00-0.22); EOSINOPHILS # (AUTO) 0.1 K/uL (0-0.4); EOSINOPHILS % (AUTO) 2.5 % (0.0-4.0); HEMATOCRIT 36.1 % (36-48); HEMOGLOBIN 11.9 g/dL (12.0-16.0); LYMPHOCYTES # (AUTO) 1.1 K/uL (2.5-16.5); MEAN CORPUSCULAR HEMOGLOBIN 31 pg (27-31); MEAN CORPUSCULAR HGB CONC 33 g/dL (33-37); MEAN CORPUSCULAR VOLUME 94.7 fL (80-94); MONOCYTES # (AUTO) 0.4 K/uL (0.8-1.0); MONOCYTES % (AUTO) 6.5 % (1.7-9.3); PLATELET COUNT (AUTO) 181 K/uL (140-450); RED BLOOD CELL COUNT(AUTO) 3.81 MIL/uL (4.20-5.40); RED CELL DISTRIBUTION WIDTH 14.8 % (11.6-13.7); WHITE BLOOD COUNT (AUTO) 5.7 K/uL (4.8-10.8)
--- NOTE | 2019-04-01 17:38 | NUR ---
HEADING TO IMAGING AT THIS TIME.
[2019-04-01 17:40] LABS: APPEARANCE,URINE CLOUDY (CLEAR); BILIRUBIN,URINE NEGATIVE (NEGATIVE); BLOOD, URINE TRACE-I (NEGATIVE); COLOR,URINE YELLOW (YELLOW); LEUKOCYTE ESTERASE ,URINE TRACE (NEGATIVE); NITRITE, URINE NEGATIVE (NEGATIVE); PH,URINE 7.5 (5.0-9.0); UGLUCOSE 2+ (NEGATIVE)
[2019-04-01 17:41] LABS: ANION GAP 18.6 (8-16); POTASSIUM 5.6 mmol/L (3.5-5.1)
[2019-04-01 17:45] LABS: CREATININE 8.2 mg/dL (0.6-1.3)
[2019-04-01 17:48] LABS: ALBUMIN 3.6 g/dL (3.4-5.0); TOTAL BILIRUBIN 0.7 mg/dL (0.0-1.0)
[2019-04-01 17:58] LABS: RBC,URINE 0-5 /HPF (0-5); WBC,URINE 0-5 /HPF (0-5)
[2019-04-01] MEDS ORDERED: SODIUM ZIRCONIUM CYCLOSILICATE 10 GM POWD.PACK PO ONE (18:15)
[2019-04-01 18:43] VITALS: BP 160/80
--- NOTE | 2019-04-01 18:43 | NUR ---
Patient discharged with v/s stable. Written and verbal after care instructions given and explained. Patient alert, oriented and verbalized understanding of instructions. Ambulatory with steady gait. All questions addressed prior to discharge. ID band removed. Patient advised to follow up with PMD. Rx of MIRALAX, LACTULOSE, AND GLYCERIN given. Patient educated on indication of medication including possible reaction and side effects. Opportunity to ask questions provided and answered.
== END 2019-04-01 18:43 | disposition home or self-care (01) ==
LOC: MED 16:01
DX: K59.00 Constipation, unspecified (principal); E87.5 Hyperkalemia; I12.0 Hypertensive chronic kidney disease with stage 5 chronic kidney disease or end stage renal disease; E11.22 Type 2 diabetes mellitus with diabetic chronic kidney disease; N18.6 End stage renal disease; R10.31 Right lower quadrant pain; R10.13 Epigastric pain; K21.9 Gastro-esophageal reflux disease without esophagitis; F03.90 Unspecified dementia, unspecified severity, without behavioral disturbance, psychotic disturbance, mood disturbance, and anxiety; Z98.890 Other specified postprocedural states; Z79.899 Other long term (current) drug therapy; Z88.0 Allergy status to penicillin
CPT/HCPCS: 36415; 74021; 80053; 81001; 81025; 82948; 83690; 85025; 87086; 96372; 99284; J2270; Q0162

== ENCOUNTER 2019-09-13 12:38 | Emergency (ER) | payer OTHER ==
[~2019-09-13] VITALS: Ht 167.6 cm; Wt 99.8 kg
[2019-09-13 12:52] VITALS: BP 107/67
--- NOTE | 2019-09-13 13:00 | NUR ---
PT AMBULATED TO BED 5, STEADY GAIT.
--- NOTE | 2019-09-13 13:28 | NUR ---
34 Y/F PRESENTS TO ED FOR LUQ ABD PAIN THAT STARTED THIS MORNING, PT REPORTS PAIN IS OFF AND ON, BURNING TYPE OF PAIN THAT RADIATED TO LEFT MID BACK AND CAUSES SOB. PT REPORTS TAKING TYLENOL WHICH PROVIED RELIEF. PT DENIES COUGH, FEVER, NAUSEA, VOMITING, OR DIARRHEA. PT A &O X 4. RR EVEN AND UNLABORED. LUNG CLEAR. ABD SOFT. BS ACTIVE X 4. PMH- DM, DIALYSIS, HTN ALLERGIES- PENICILLIN
--- NOTE | 2019-09-13 13:53 | NUR ---
PT BEING TAKEN TO XR VIA WHEELCHAIR.
--- NOTE | 2019-09-13 14:36 | NUR ---
PT LYING IN BED. RR EVEN AND UNLABORED. ALL NEEDS MET, WILL CONTINUE TO MONITOR. PT GIVEN A PHONE TO CALL HER DAUGHTER.
[2019-09-13 15:06] VITALS: BP 153/78
--- NOTE | 2019-09-13 15:06 | NUR ---
Patient discharged with v/s stable. Written and verbal after care instructions given and explained. Patient alert, oriented and verbalized understanding of instructions. Ambulatory with steady gait. All questions addressed prior to discharge. ID band removed. Patient advised to follow up with PMD. Rx of MINERAL OIL AND MIRALAX given. Patient educated on indication of medication including possible reaction and side effects. Opportunity to ask questions provided and answered.
== END 2019-09-13 15:06 | disposition home or self-care (01) ==
LOC: MED 12:38
DX: K59.00 Constipation, unspecified (principal); E11.9 Type 2 diabetes mellitus without complications; F03.90 Unspecified dementia, unspecified severity, without behavioral disturbance, psychotic disturbance, mood disturbance, and anxiety; K21.9 Gastro-esophageal reflux disease without esophagitis; I10 Essential (primary) hypertension; N28.9 Disorder of kidney and ureter, unspecified; Z88.0 Allergy status to penicillin; Z79.899 Other long term (current) drug therapy
CPT/HCPCS: 74022; 81025; 82948; 99283; 99284

== ENCOUNTER 2019-11-19 12:31 | Emergency (ER) | payer OTHER ==
[~2019-11-19] VITALS: Ht 162.6 cm; Wt 99.8 kg
[2019-11-19 12:35] VITALS: BP 176/104
--- NOTE | 2019-11-19 12:45 | NUR ---
Dr. Simpson is evaluating the patient at bedside.
--- NOTE | 2019-11-19 12:47 | NUR ---
BLOOD SUGAR 197 AT THIS TIME.
[2019-11-19] MEDS ORDERED: KETOROLAC 30 MG/ML VIAL IVP ONE (12:50)
--- NOTE | 2019-11-19 13:01 | NUR ---
PT TO CT VIA DERICK
--- NOTE | 2019-11-19 13:06 | NUR ---
PATIENT PRESENTS TO ED WITH LUQ PAIN RADIATING EPIGASTRIC BURNING PAIN . PT STATES . DENIES D; SKIN IS PINK/WARM/DRY; AAOX4 WITH EVEN AND STEADY GAIT; LUNGS CLEAR BL; HR EVEN AND REGULAR; PT DENIES ANY FEVER, CP, SOB, OR COUGH AT THIS TIME; PATIENT STATES PAIN OF 8/10 AT THIS TIME; VSS; PATIENT POSITIONED FOR COMFORT; HOB ELEVATED; BEDRAILS UP X2; BED DOWN. ER MD MADE AWARE OF PT STATUS.
--- NOTE | 2019-11-19 13:11 | NUR ---
RETURNED FROM CT
[2019-11-19] MEDS ORDERED: ACETAMINOPHEN EXTRA STRENGTH 500 MG TAB PO ONE (13:55)
[2019-11-19 14:01] LABS: APPEARANCE,URINE CLEAR (CLEAR); BILIRUBIN,URINE NEGATIVE (NEGATIVE); BLOOD, URINE 1+ (NEGATIVE); COLOR,URINE YELLOW (YELLOW); LEUKOCYTE ESTERASE ,URINE 1+ (NEGATIVE); NITRITE, URINE NEGATIVE (NEGATIVE); PH,URINE 8.5 (5.0-9.0); UGLUCOSE 3+ (NEGATIVE)
[2019-11-19 14:06] LABS: ALBUMIN 3.4 g/dL (3.4-5.0); ANION GAP 12.7 (8-16); CARBON DIOXIDE 29.4 mmol/L (21-32); POTASSIUM 5.1 mmol/L (3.5-5.1); TOTAL BILIRUBIN 0.5 mg/dL (0.0-1.0)
[2019-11-19 14:12] LABS: BASOPHILS # (AUTO) 0.1 K/uL (0.00-0.22); BASOPHILS % (AUTO) 2.6 % (0.0-2.0); EOSINOPHILS # (AUTO) 0.2 K/uL (0-0.4); HEMATOCRIT 38.9 % (36-48); HEMOGLOBIN 12.8 g/dL (12.0-16.0); LYMPHOCYTES # (AUTO) 1.1 K/uL (2.5-16.5); LYMPHOCYTES % (AUTO) 26.2 % (20.5-51.1); MEAN CORPUSCULAR HEMOGLOBIN 33 pg (27-31); MEAN CORPUSCULAR HGB CONC 33 g/dL (33-37); MONOCYTES # (AUTO) 0.4 K/uL (0.8-1.0); MONOCYTES % (AUTO) 10.3 % (1.7-9.3); NEUTROPHILS # (AUTO) 2.3 K/uL (1.8-7.7); NEUTROPHILS % (AUTO) 55.9 % (42.2-75.2); PLATELET COUNT (AUTO) 122 K/uL (140-450); RED BLOOD CELL COUNT(AUTO) 3.94 MIL/uL (4.20-5.40); RED CELL DISTRIBUTION WIDTH 13.8 % (11.6-13.7); WHITE BLOOD COUNT (AUTO) 4.2 K/uL (4.8-10.8)
--- NOTE | 2019-11-19 14:31 | NUR ---
Patient discharged with v/s stable. Written and verbal after care instructions given and explained. Patient alert, oriented and verbalized understanding of instructions. Ambulatory with steady gait. All questions addressed prior to discharge. ID band removed. Patient advised to follow up with PMD. Rx of cipro/norco/motrin/prilosec given. Patient educated on indication of medication including possible reaction and side effects. Opportunity to ask questions provided and answered.
[2019-11-19 14:33] VITALS: BP 143/87
== END 2019-11-19 14:31 | disposition home or self-care (01) ==
LOC: MED 12:31
DX: N39.0 Urinary tract infection, site not specified (principal); E11.9 Type 2 diabetes mellitus without complications; F03.90 Unspecified dementia, unspecified severity, without behavioral disturbance, psychotic disturbance, mood disturbance, and anxiety; I10 Essential (primary) hypertension; K21.9 Gastro-esophageal reflux disease without esophagitis; N28.9 Disorder of kidney and ureter, unspecified; Z88.0 Allergy status to penicillin; Z79.899 Other long term (current) drug therapy; Z98.890 Other specified postprocedural states
CPT/HCPCS: 36415; 71045; 74176; 80053; 81001; 81025; 83690; 85025; 87086; 96374; 99285; J1885; Q0092

== ENCOUNTER 2020-05-12 12:26 | Emergency (ER) | payer OTHER ==
[~2020-05-12] VITALS: Ht 167.6 cm; Wt 77.1 kg
[~2020-05-12 12:26] MED LIST changes: +CALC667C12 PO; -PHO667 PO
[2020-05-12 12:32] VITALS: BP 108/74
--- NOTE | 2020-05-12 13:00 | NUR ---
BIBA FROM HOME WITH C/O BLEEDING FROM LUE SHUNT. ARM WAS WRAPPED BY EMS AND BLEEDING IS CURRENTLY CONTROLLED AT THIS TIME. HX: ESRD
[2020-05-12] MEDS ORDERED: BACITRACIN OINT 500 UNITS/GM PKT TP ONE (16:45)
[2020-05-12 17:03] VITALS: BP 108/74
== END 2020-05-12 17:03 | disposition home or self-care (01) ==
LOC: MED 12:26
DX: T82.838A Hemorrhage due to vascular prosthetic devices, implants and grafts, initial encounter (principal); E11.22 Type 2 diabetes mellitus with diabetic chronic kidney disease; I12.0 Hypertensive chronic kidney disease with stage 5 chronic kidney disease or end stage renal disease; N18.6 End stage renal disease; F03.90 Unspecified dementia, unspecified severity, without behavioral disturbance, psychotic disturbance, mood disturbance, and anxiety; K21.9 Gastro-esophageal reflux disease without esophagitis; I10 Essential (primary) hypertension; Z99.2 Dependence on renal dialysis; Z79.899 Other long term (current) drug therapy; Z88.0 Allergy status to penicillin
CPT/HCPCS: 99283

== ENCOUNTER 2021-06-14 11:34 | Emergency (ER) | payer OTHER, SELFPAY ==
[~2021-06-14] VITALS: Ht 165.1 cm; Wt 90.7 kg
[~2021-06-14 11:34] MED LIST changes: +POTA10TA70 PO; -POTA10TE30 PO
[2021-06-14 11:58] VITALS: BP 162/84
[2021-06-14] MEDS ORDERED: NACL 0.9% 1,000 ML IV ONE (13:25)
[2021-06-14 14:12] LABS: BASOPHILS % (AUTO) 0.8 % (0.0-2.0); HEMOGLOBIN 10.1 g/dL (12.0-16.0); LYMPHOCYTES % (AUTO) 21.5 % (20.5-51.1); MEAN CORPUSCULAR HEMOGLOBIN 32 pg (27-31); MEAN CORPUSCULAR HGB CONC 34 g/dL (33-37); MEAN CORPUSCULAR VOLUME 95.5 fL (80-94); MONOCYTES # (AUTO) 0.5 K/uL (0.8-1.0); MONOCYTES % (AUTO) 11.9 % (1.7-9.3); NEUTROPHILS # (AUTO) 2.9 K/uL (1.8-7.7); NEUTROPHILS % (AUTO) 64.8 % (42.2-75.2); PLATELET COUNT (AUTO) 138 K/uL (140-450); RED BLOOD CELL COUNT(AUTO) 3.15 MIL/uL (4.20-5.40); RED CELL DISTRIBUTION WIDTH 14.4 % (11.6-13.7); WHITE BLOOD COUNT (AUTO) 4.5 K/uL (4.8-10.8)
[2021-06-14 15:01] LABS: ALBUMIN 3.1 g/dL (3.4-5.0); ANION GAP 18.6 (8-16); CARBON DIOXIDE 24.9 mmol/L (21-32); POTASSIUM 4.5 mmol/L (3.5-5.1); TOTAL BILIRUBIN 0.5 mg/dL (0.0-1.0)
[2021-06-14 15:04] LABS: CREATININE 8.9 mg/dL (0.6-1.3)
--- NOTE | 2021-06-14 15:04 | NUR ---
36 y/o female, c/o sob, dry cough for 1 week. pt states "my breathing gets fast and slow". denies anyone else sick in household. pt has shunt in left arm, right arm iv picc line site at this time from home. denies n/v/d. denies dysuria, hematuria, urinary retention or frequency. denies syncope, loc or head/neck injury. skin is pink/warm/dry. aa&ox4 pt in wheelchair at this time per dm2 wound on right foot. lungs clear bl. hr even and regular, cap refill <3, no edema present at this time. patient states pain is 8/10 at this time, [place]. ermd made aware of pt status. pmh: dialysis (monday, , monday), dm2, wound on right foot allergy: penicillin (hives) med: gabapentin
--- NOTE | 2021-06-14 15:11 | NUR ---
post iv bolus, urine sample needed and repeat accucheck per md panchal
[2021-06-14 15:22] VITALS: BP 176/77
--- NOTE | 2021-06-14 17:39 | NUR ---
DAYLIN Cole, DORIE ROSAS MADE AWARE
[2021-06-14] MEDS ORDERED: PROM118S5 PO (18:04)
--- NOTE | 2021-06-14 18:09 | NUR ---
Patient discharged with v/s stable. Written and verbal after care instructions ABOUT VIRAL ILLNESS, COUGH given and explained. Patient alert, oriented and verbalized understanding of instructions. Ambulatory with steady gait. All questions addressed prior to discharge. ID band removed. Patient advised to follow up with PMD. Rx of PROMETHAZINE DM given. Patient educated on indication of medication including possible reaction and side effects. Opportunity to ask questions provided and answered.
[2021-06-15] MEDS ORDERED: PRED20TA5 PO (13:28)
== END 2021-06-14 18:09 | disposition home or self-care (01) ==
LOC: MED 11:34
DX: B34.9 Viral infection, unspecified (principal); Z20.822 Contact with and (suspected) exposure to COVID-19; E11.65 Type 2 diabetes mellitus with hyperglycemia; I10 Essential (primary) hypertension; Z79.899 Other long term (current) drug therapy; Z88.0 Allergy status to penicillin; Z98.890 Other specified postprocedural states
CPT/HCPCS: 36415; 71045; 80053; 84484; 85025; 93005; 96360; 99285; U0003; J7030

== ENCOUNTER 2021-06-15 09:58 | Emergency (ER) | payer OTHER, SELFPAY ==
[~2021-06-15] VITALS: Ht 160 cm; Wt 99.8 kg
[~2021-06-15 09:58] MED LIST changes: +PROM118S5 PO
[2021-06-15 10:47] VITALS: BP 162/102
--- NOTE | 2021-06-15 10:54 | NUR ---
TENT3
[2021-06-15] MEDS ORDERED: PRED20TA5 PO (13:28)
[2021-06-15 13:49] VITALS: BP 133/88
--- NOTE | 2021-06-15 13:49 | NUR ---
Patient discharged with v/s stable. Written and verbal after care instructions given and explained. Patient alert, oriented and verbalized understanding of instructions. Wheel Chair Assisted with to car. All questions addressed prior to discharge. ID band removed. Patient advised to follow up with PMD. Rx of PREDNISONE given. Patient educated on indication of medication including possible reaction and side effects. Opportunity to ask questions provided and answered.
== END 2021-06-15 13:49 | disposition home or self-care (01) ==
LOC: MED 09:58
DX: R05.9 Cough, unspecified (principal); R06.02 Shortness of breath; Z88.0 Allergy status to penicillin; E11.22 Type 2 diabetes mellitus with diabetic chronic kidney disease; I12.9 Hypertensive chronic kidney disease with stage 1 through stage 4 chronic kidney disease, or unspecified chronic kidney disease; N18.9 Chronic kidney disease, unspecified
CPT/HCPCS: 99283